=== PATIENT | male | born 1990 | race American Indian/Alaskan Native ===

== ENCOUNTER 2020-09-22 09:49 | Emergency (ER) | payer BC ==
[2020-09-22] MEDS ORDERED: IBUPROFEN 600 MG TAB PO ONE ×2 (09:59→10:01)
--- NOTE | 2020-09-22 11:47 | Emergency Department Report ---
- General Chief Complaint: Sore Throat Stated Complaint: BODYACHES/THROAT SORE/BODY Time Seen by Provider: 09/22/20 11:37 Source: patient Mode of arrival: Ambulatory Limitations: No Limitations - History of Present Illness Initial Comments: Patient is a 29-year-old male presents emergency room with complaints of a fever that began last night. He has associated headache, generalized body aches, chills, mild dry cough, sore throat. He denies any vomiting, diarrhea, abdominal pain, chest pain, shortness of breath. He denies any known sick contacts or recent travel. He states initially he began having symptoms on 09/11 which lasted for a few days but then completely resolved. He states that he then began to have symptoms again last night and has loss of sense of smell. He states that he did get testing for COVID-19 and is awaiting his results, he states he had the swab performed 2 days ago. He denies any past medical history. No allergies to medications. He is a non-smoker. - Related Data Allergies Allergy/AdvReac Type Severity Reaction Status Date / Time No Known Allergies Allergy Verified 09/22/20 10:04 ED Review of Systems ROS: Stated complaint: BODYACHES/THROAT SORE/BODY Other details as noted in HPI Comment: All other systems reviewed and negative ED Past Medical Hx - Past Medical History Previous Medical History?: No - Surgical History Past Surgical History?: No ED Physical Exam - General Limitations: No Limitations General appearance: alert, in no apparent distress - Head Head exam: Present: atraumatic, normocephalic - Eye Eye exam: Present: normal appearance - ENT ENT exam: Present: normal orophraynx, mucous membranes moist, TM's normal bilaterally, normal external ear exam - Neck Neck exam: Present: full ROM. Absent: meningismus - Respiratory Respiratory exam: Present: normal lung sounds bilaterally. Absent: respiratory distress, wheezes, rales, rhonchi, stridor, chest wall tenderness, accessory muscle use, decreased breath sounds, prolonged expiratory - Cardiovascular Cardiovascular Exam: Present: regular rate, normal rhythm, normal heart sounds. Absent: systolic murmur, diastolic murmur, rubs, gallop - Neurological Exam Neurological exam: Present: alert, oriented X3 - Psychiatric Psychiatric exam: Present: normal affect, normal mood - Skin Skin exam: Present: warm, dry, intact ED Course Vital Signs 09/22/20 09/22/20 09:57 12:11 Temperature 101.1 F H 98.2 F Pulse Rate 99 H 82 Respiratory 16 16 Rate Blood Pressure 134/82 110/73 [Right] O2 Sat by Pulse 97 98 Oximetry ED Medical Decision Making - Lab Data Vital Signs 09/22/20 09/22/20 09:57 12:11 Temperature 101.1 F H 98.2 F Pulse Rate 99 H 82 Respiratory 16 16 Rate Blood Pressure 134/82 110/73 [Right] O2 Sat by Pulse 97 98 Oximetry - Medical Decision Making Patient is a 29-year-old male presents emergency room with complaints of a fever that began last night. He has associated headache, generalized body aches, chills, mild dry cough, sore throat. He denies any vomiting, diarrhea, abdominal pain, chest pain, shortness of breath. He denies any known sick contacts or recent travel. He states initially he began having symptoms on 09/11 which lasted for a few days but then completely resolved. He states that he then began to have symptoms again last night and has loss of sense of smell. He states that he did get testing for COVID-19 and is awaiting his results, he states he had the swab performed 2 days ago. He denies any past medical history. No allergies to medications. He is a non-smoker. Initial vitals with fever, patient given ibuprofen and vitals are normal. Breath sounds are clear bilaterally, no wheezing, no rales, no rhonchi, normal oropharynx, normal TMs and canals, no sinus tenderness palpation. He is not hypoxic or tachycardic. No clinical signs of bacterial pneumonia or bacterial bronchitis. No clinical signs of dehydration. Symptoms appear most likely related to viral URI. Patient is presenting with the symptoms during COVID-19 pandemic, discussed COVID-19 with patient, discussed outpatient testing, discussed strict return precautions, discussed self quarantine. Advised patient Please increase your fluid intake over the next several days. May take Tylenol or ibuprofen as needed for fever or body aches. May take [id number] cold symptom relief medication such as Mucinex or TheraFlu. Follow-up with a primary care doctor for reexamination. Return to emergency room immediately for any new or worsening symptoms including but not limited to difficulty breathing, shortness of breath, severe chest pain, unable to tolerate by mouth intake, etc. Please self quarantine for 10 days from the onset of your symptoms. Please do not go out in public. If you are around others at home please wear a mask. If you need to cough or sneeze please do so in a napkin and immediately throw it away and immediately wash your hands. Wash your hands frequently. Wipe everything down. Critical care attestation.: If time is entered above; I have spent that time in minutes in the direct care of this critically ill patient, excluding procedure time. ED Disposition Clinical Impression: Viral URI with cough Disposition: DC-01 TO HOME OR SELFCARE Is pt being admited?: No Does the pt Need Aspirin: No Condition: Stable Instructions: COVID-19, COVID-19: How to Protect Yourself and Others - CDC, Viral Respiratory Infection, Prevent the Spread of COVID-19 if You Are Sick - CDC Additional Instructions: Please increase your fluid intake over the next several days. May take Tylenol or ibuprofen as needed for fever or body aches. May take [id number] cold symptom relief medication such as Mucinex or TheraFlu. Follow-up with a primary care doctor for reexamination. Return to emergency room immediately for any new or worsening symptoms including but not limited to difficulty breathing, shortness of breath, severe chest pain, unable to tolerate by mouth intake, etc. Please self quarantine for 10 days from the onset of your symptoms. Please do not go out in public. If you are around others at home please wear a mask. If you need to cough or sneeze please do so in a napkin and immediately throw it away and immediately wash your hands. Wash your hands frequently. Wipe everything down. Referrals: JOHANA RANGEL MD [Staff Physician] - 2-3 Days [facility] [Provider Group] - 2-3 Days Forms: Work/School Release Form(ED) Time of Disposition: 11:45 Print Language: [place]
[2020-09-22 12:12] VITALS: BP 110/73
== END 2020-09-22 12:12 | disposition home or self-care (01) ==
LOC: ED 09:49
DX: J06.9 Acute upper respiratory infection, unspecified (principal); B97.89 Other viral agents as the cause of diseases classified elsewhere; R05 Cough
CPT/HCPCS: 99282